=== PATIENT | female | born 1995 | race Caucasian/White ===

== ENCOUNTER 2017-03-01 15:41 | Emergency (ER) | payer OTHER ==
--- NOTE | 2017-03-01 15:57 | ED Physician Documentation ---
Skin Rash - HISTORIAN Historian: patient - HPI Stated Complaint: bug bite rash Chief Complaint: Skin Rash Additional Information: noticed yesterday, now larger with inderation and erythema. complains of itch, and "hurts a little. " Onset: days ago Timing: still present Duration: worse Location: LLE Quality: itchy Identified Cause?: No Where: home Context: Medication Exposure: none Context: Food Exposure: none Context: Other Exposure: other (possible insect bite) - ROS CONST: none CVS/RESP: none EYES/ENT: none GI/: none MS/SKIN/LYMPH: none NEURO/PSYCH: none - PAST HX Past History: none Other History: none Surgeries/Procedures: No Immunizations: UTD - SOCIAL HX Smoking History: non-smoker Alcohol Use: none Drug Use: none - FAMILY HX Family History: none - REVIEWED ASSESSMENTS Nursing Assessment Reviewed: Yes Vitals Reviewed: Yes Skin Rash Physical Exam - EXAM General Appearance: no acute distress, alert Skin: other (8cm circular firm skin lesion Left inner calf below knee) Location: extremities Character: symmetric Symptoms: tenderness, swelling, induration Extremities: nml ROM, no edema EENT: eyes nml inspection Neck: no swelling Respiratory: no resp distress CVS: reg. rate & rhythm Abdomen: non-tender Neuro/Psych: oriented x3 Discharge Clincal Impression: Cellulitis of left leg, Allergic dermatitis Insect bite Qualifiers: Encounter type: initial encounter Qualified Code(s): W57.XXXA - Bitten or stung by nonvenomous insect and other nonvenomous arthropods, initial encounter Disposition: HOME, SELF-CARE Decision to Admit: NO Date of Decison to Admit: 03/01/17 Decision Time: 16:00
[2017-03-01 15:58] VITALS: BP 120/83
== END 2017-03-01 16:08 | disposition home or self-care (01) ==
LOC: ED 15:41
DX: S80.862A Insect bite (nonvenomous), left lower leg, initial encounter (principal); L03.116 Cellulitis of left lower limb; W57.XXXA Bitten or stung by nonvenomous insect and other nonvenomous arthropods, initial encounter; Y93.9 Activity, unspecified; Y99.9 Unspecified external cause status
CPT/HCPCS: 99283